=== PATIENT | male | born 1995 ===

== ENCOUNTER 2022-04-11 10:29 | Emergency (ER) | payer SELFPAY ==
[~2022-04-11] VITALS: Ht 182.9 cm; Wt 108.4 kg
[2022-04-11] MEDS ORDERED: AZIT250 PO (11:23)
[2022-04-11] MEDS ORDERED: PRED20 PO (11:24)
[2022-04-11] MEDS ORDERED: ALBU90OI INH (11:24)
[2022-04-11] MEDS ORDERED: ZYRTEC10 M2 PO (14:26)
[2022-04-11] MEDS ORDERED: Flovent 220 Ora12 GM INH (14:26)
== END 2022-04-11 15:04 | disposition home or self-care (01) ==
LOC: ER 10:29
DX: J45.901 Unspecified asthma with (acute) exacerbation (principal); J20.8 Acute bronchitis due to other specified organisms; J02.8 Acute pharyngitis due to other specified organisms; Z87.891 Personal history of nicotine dependence; Z79.899 Other long term (current) drug therapy
CPT/HCPCS: 71046; 94644; 94664; 96365; 96375; 99285-25; A9270; J1200; J2930; J3475